=== PATIENT | female | born 1975 | race Caucasian/White ===

== ENCOUNTER 2017-08-16 12:17 | Emergency (ER) | payer OTHER ==
[~2017-08-16] VITALS: Ht 170.2 cm; Wt 105.0 kg
[~2017-08-16 12:17] MED LIST: ALBU6.7H INH; LEVO25TA4 PO; LOSA50TA PO
[2017-08-16 12:21] VITALS: BP 168/93; PULSE 113; RESP 17; TEMP 99.3; O2SAT 97
[2017-08-16] MEDS ORDERED: BENZ100 PO (12:51)
[2017-08-16] MEDS ORDERED: PRED20 PO (12:51)
[2017-08-16] MEDS ORDERED: VENTAER INH (12:51)
[2017-08-16] MEDS ORDERED: AZIT250T3 PO (12:51)
--- NOTE | 2017-08-16 12:53 | PD ---
HPI Chief Complaint: Cold / Flu Symptoms Time Seen by Provider: 12:35 Travel History International Travel<30 days: No Contact w/Intl Traveler<30days: No Traveled to known affect area: No History of Present Illness HPI 41-year-old female with productive cough 5 days. Patient reports symptoms began as a URI approximately a week prior. Symptoms resolved with the exception of the cough. She is reporting mucopurulent colored sputum. Denies fever but reports chills. She denies chest pain or shortness of breath. She has history of asthma. Symptoms are unrelieved by OTC cough and cold medicine. [facility] Past Medical History Narrative Medical Significant for hypertension and asthma Cardiovascular Problems: Yes (HTN) Diminished Hearing: No Hypertension: Yes Thyroid Disease: Yes (hypo) Tetanus Vaccination: Unknown Influenza Vaccination: No ?: Not LMP: 3.5 WEEKS AGO Social History Alcohol Use: Yes (occ) Tobacco Use: No Substance Use: No Allergies-Medications (Allergen,Severity, Reaction): Coded Allergies: penicillin G (Unverified Allergy, Mild, 08/16/17) Reported Meds & Prescriptions Reported Meds & Active Scripts Active Tessalon Perles (Benzonatate) 100 Mg Cap 100 Mg PO TID PRN Ventolin Hfa 18 GM Inh (Albuterol Sulfate) 90 Mcg/Act Aer 2 Puff INH Q4-6H PRN Prednisone 20 Mg Tab 40 Mg PO DAILY Take 40 mg (2 tablets) daily for 5 days Azithromycin 250 Mg Tab 250 Mg PO DIRECTED Take 2 tabs (500 mg) on day 1 then 1 tab daily x 4 days. Levothyroxine (Levothyroxine Sodium) 25 Mcg Tab 25 Mcg PO DAILY Take in morning on an empty stomach, at least 30 minutes before food with no other medications. Losartan (Losartan Potassium) 50 Mg Tab 50 Mg PO DAILY Review of Systems Except as stated in HPI: all other systems reviewed are Neg General / Constitutional: Positive: Chills, No: Fever Respiratory: Positive: Cough Physical Exam Narrative GENERAL: Alert female. Nontoxic appearing. SKIN: Warm and dry. HEAD: Normocephalic. EYES: No scleral icterus. No injection or drainage. NECK: Supple, trachea midline. No JVD or lymphadenopathy. CARDIOVASCULAR: Regular rate and rhythm without murmurs, gallops, or rubs. RESPIRATORY: Breath sounds equal bilaterally. No accessory muscle use. Questionable rhonchi. GASTROINTESTINAL: Abdomen soft, non-tender, nondistended. MUSCULOSKELETAL: No cyanosis, or edema. BACK: Nontender without obvious deformity. No CVA tenderness. Data Data Last Documented VS Vital Signs Date Time Temp Pulse Resp B/P (MAP) Pulse Ox O2 Delivery O2 Flow Rate FiO2 08/16/17 12:21 99.3 113 17 168/93 (118) 97 MDM Medical Decision Making Medical Screen Exam Complete: Yes Emergency Medical Condition: Yes Differential Diagnosis Bronchitis, pneumonia, influenza Narrative Course 41-year-old female with productive cough and chills the last 5 days. Patient is nontoxic-appearing. She is questionable rhonchi. She is mildly tachycardic in the 110s. No respiratory distress. Patient be treated for bronchitis. She was encouraged to increase oral fluids and follow up with her primary doctor. Return if she develops new or worsening symptoms. The pressure was found to be elevated in triage. Patient reports she did not take her blood pressure medication. She was encouraged take her BP meds when she returned home. Diagnosis Primary Impression: Bronchitis Referrals: Primary Care Physician Additional Instructions: Stable hydrated by drinking plenty of fluids. Follow-up with her primary doctor. Return if he developed new or worsening symptoms. Scripts Benzonatate (Tessalon Perles) 100 Mg Cap 100 MG PO TID Y for COUGH, #15 CAP 0 Refills Prov: Arlene Sales 08/16/17 Albuterol 18 GM Inh (Ventolin Hfa 18 GM Inh) 90 Mcg/Act Aer 2 PUFF INH Q4-6H Y for SHORTNESS OF BREATH, #1 INHALER 0 Refills Prov: Arlene Salse 08/16/17 Prednisone (Prednisone) 20 Mg Tab 40 MG PO DAILY, #10 TAB 0 Refills Take 40 mg (2 tablets) daily for 5 days Prov: Arlene Sales 08/16/17 Azithromycin (Azithromycin) 250 Mg Tab 250 MG PO DIRECTED for Infection, #6 TAB 0 Refills Take 2 tabs (500 mg) on day 1 then 1 tab daily x 4 days. Prov: Arlene Sales 08/16/17 Disposition: 01 DISCHARGE HOME Condition: Stable Arlene Sales Aug 16, 2017 12:53
== END 2017-08-16 12:55 | disposition home or self-care (01) ==
LOC: PHEFT 12:17
DX: J40 Bronchitis, not specified as acute or chronic (principal); I10 Essential (primary) hypertension
CPT/HCPCS: 99284